=== PATIENT | female | born 1945 | race Caucasian/White ===

== ENCOUNTER 2024-02-12 07:05 | Emergency (ER) | payer MEDICARE ==
[~2024-02-12] VITALS: Ht 160 cm; Wt 73.5 kg
[~2024-02-12 07:05] MED LIST: ASPIRIN ADULT L81 M1 PO; CALCIUM + D3 E1 EACH PO; LEVOTHYROXIN0.075 MG PO; METOPROLOL SUCC50 M2 PO; SIMVASTATIN20 MG PO
[2024-02-12] MEDS ORDERED: LOSARTAN POTASS50 M1 PO (07:17)
[2024-02-12] MEDS ORDERED: METOPROLOL SUCC50 M1 PO (07:31)
[2024-02-12] MEDS ORDERED: SYNTHROID,LEVO75 MCG PO (07:32)
[2024-02-12] MEDS ORDERED: ASPIRIN81 M1 PO (07:32)
[2024-02-12] MEDS ORDERED: CALCIUM500 M1 PO (07:32)
[2024-02-12] MEDS ORDERED: MAGNESIUM100 M1 PO (07:33)
[2024-02-12 07:44] LABS: BASO % 0.5 % (0.0-1.0); EOS # 0.3 10*3/uL (0.0-0.4); HEMATOCRIT 42.5 % (37.0-47.0); MEAN CELL VOLUME 95.9 fl (81.0-99.0); MEAN CORPUSCULAR HGB CONC 34.4 g/dl (33.0-37.0); MEAN PLATELET VOLUME 9.9 fl (9.6-12.3); MONO # 0.7 10*3/uL (0.1-1.0); MONO % 8.4 % (3.0-9.0); NEUT # 3.9 10*3/uL (2.3-7.9); NEUT % 46.1 % (47.0-73.0); PLATELET COUNT AUTOMATED 197 10*3/uL (130-400); RED BLOOD COUNT 4.43 10*6/uL (4.10-5.10); RED CELL DISTRI WIDTH 12.4 % (0-14.5); WHITE BLOOD COUNT 8.4 10*3/uL (4.8-10.8)
[2024-02-12 07:56] LABS: POTASSIUM 4.9 mmol/L (3.4-5.1); TOTAL PROTEIN 7.6 gm/dL (6.0-8.0)
[2024-02-12] MEDS ORDERED: Ciprofloxacin Hydrochloride 500 MG TAB PO ONE (09:05)
[2024-02-12] MEDS ORDERED: METRONIDAZOLE 500 MG TAB PO ONE (09:05)
[2024-02-12] MEDS ORDERED: ACETAMINOPHEN 325 MG TAB PO ONE (09:05)
[2024-02-12] MEDS ORDERED: METRONIDAZOLE500 M1 PO (09:07)
[2024-02-12] MEDS ORDERED: CIPRO500 MG PO (09:07)
== END 2024-02-12 09:09 | disposition home or self-care (01) ==
LOC: ED 07:05
PROVIDERS: Internal Medicine
DX: K57.32 Diverticulitis of large intestine without perforation or abscess without bleeding (principal); E80.6 Other disorders of bilirubin metabolism; J44.9 Chronic obstructive pulmonary disease, unspecified; I12.9 Hypertensive chronic kidney disease with stage 1 through stage 4 chronic kidney disease, or unspecified chronic kidney disease; N18.9 Chronic kidney disease, unspecified; N17.9 Acute kidney failure, unspecified; I25.10 Atherosclerotic heart disease of native coronary artery without angina pectoris; Z98.890 Other specified postprocedural states